=== PATIENT | female | born 1995 | race Caucasian/White ===

== ENCOUNTER 2016-12-15 13:25 | Emergency (ER) | payer SELFPAY ==
[2016-12-15] MEDS ORDERED: Ibuprofen 600 MG TAB ONE (14:32)
--- NOTE | 2016-12-15 15:22 | RAD ---
RIGHT ANKLE THREE VIEWS: History: Injury. Pain. FINDINGS: Mild soft tissue swelling. No evidence of fracture. IMPRESSION: No acute fracture identified. POS: [facility]
--- NOTE | 2016-12-15 15:25 | RAD ---
RIGHT TIBIA AND FIBULA: History: Pain. Injury jumping on trampoline. FINDINGS: No fracture. No osseous abnormality. IMPRESSION: No acute finding. POS: [facility]
== END 2016-12-15 14:39 | disposition home or self-care (01) ==
LOC: SCSER 13:25
DX: S93.401A Sprain of unspecified ligament of right ankle, initial encounter (principal); F31.9 Bipolar disorder, unspecified; F41.9 Anxiety disorder, unspecified; X58.XXXA Exposure to other specified factors, initial encounter; Y93.44 Activity, trampolining